=== PATIENT | female | born 1960 | race Asian ===

== ENCOUNTER 2022-11-30 18:39 | Emergency (ER) | payer OTHER ==
[~2022-11-30] VITALS: Ht 162.6 cm; Wt 145.2 kg
[~2022-11-30 18:39] MED LIST: HALO5INJ3 IM
[2022-11-30 19:19] LABS: PLATELET COUNT 376 K/uL (152-353)
[2022-11-30 19:38] LABS: POTASSIUM 3.8 mmol/L (3.6-5.2)
[2022-11-30] MEDS ORDERED: FLUOXETINE40 MG PO (21:48)
[2022-11-30] MEDS ORDERED: ASPIRIN DR81 MG PO (21:48)
[2022-11-30] MEDS ORDERED: FURO20TA67 PO (21:49)
[2022-11-30] MEDS ORDERED: CLARITIN10 M1 PO (21:49)
[2022-11-30] MEDS ORDERED: MELATONIN5 M2 PO (21:50)
[2022-11-30] MEDS ORDERED: TRAMADOL HYDROC50 MG PO (21:50)
[2022-11-30] MEDS ORDERED: SENNOSIDES8.6 MG PO (21:50)
[2022-11-30] MEDS ORDERED: APIX1TAB PO (21:51)
[2022-11-30] MEDS ORDERED: METO50TA27 PO (21:52)
[2022-11-30] MEDS ORDERED: METFORMIN HYDR850 MG PO (21:52)
[2022-11-30] MEDS ORDERED: TYLENOL325 MG PO ×2 (21:53→21:54)
== END 2022-11-30 21:00 | disposition still patient (30) ==
LOC: ED 18:39
PROVIDERS: Emergency Medicine Emergency Medical Services
DX: R45.6 Violent behavior (principal); F22 Delusional disorders; Z02.79 Encounter for issue of other medical certificate
CPT/HCPCS: 80053; 85027; 87635; 93005; 99283; U0003